=== PATIENT | female | born 2000 | race Caucasian/White ===

== ENCOUNTER → 2022-04-12 | Outpatient (RCR) | payer BC | PROVIDERS: ATTEND Orthopaedic Surgery | DX: Z98.890 Other specified postprocedural states (principal) ==

== ENCOUNTER 2022-05-09 11:06 | Outpatient (RCR) | payer BC | END 2022-05-13 | disposition home or self-care (01) | PROVIDERS: ATTEND Orthopaedic Surgery | DX: Z98.890 Other specified postprocedural states (principal) ==

== ENCOUNTER 2022-05-19 10:07 | Outpatient (RCR) | payer BC | END 2022-06-12 | disposition home or self-care (01) | PROVIDERS: ATTEND Orthopaedic Surgery | DX: Z98.890 Other specified postprocedural states (principal) ==

== ENCOUNTER 2023-01-18 21:43 | Emergency (ER) | payer BC ==
[~2023-01-18] VITALS: Ht 175.3 cm; Wt 90.7 kg
--- NOTE | 2023-01-18 22:00 | ED EENT ---
History of Present Illness General Stated Complaint: JAW PAIN Source: patient Exam Limitations: no limitations (RICHARD GAVIRIA) History of Present Illness Date Seen by Provider: Jan 18, 2023 Time Seen by Provider: 21:57 Initial Comments Patient is a 23-year-old female presents ED with right jaw pain. Patient states she was playing basketball around 5:30 PM. She states somebody elbowed her right jaw while playing basketball. She denies loss of consciousness. She had immediate pain. She states the pain has intensified dull achy pain with right lower dental discomfort. She states now she is having difficulty opening closing her mouth. She did take some ibuprofen right before arrival. She denies of any headache, visual changes, neck pain, vomiting, headache, dizziness, neck pain, diarrhea. She denies of any lucency over the teeth or bleeding from the mouth. Pain does radiate into the right ear. She reports increased swelling. (RICHARD GAVIRIA) Allergies and Home Medications Patient Home Medication List Home Medication List Reviewed: Yes (RICHARD GAVIRIA) Review of Systems Review of Systems Constitutional: No chills, No diaphoresis, No fever, No malaise, No weakness Eyes: Denies Blurred Vision, Denies Drainage Ears: Denies Dizziness, Denies Pain Nose: denies clots, denies congestion, denies pain Mouth: denies loose teeth, denies swelling Throat: denies pain, denies swelling, denies discharge Respiratory: No cough Cardiovascular: No edema Gastrointestinal: No abdominal pain, No nausea, No vomiting Musculoskeletal: joint pain, muscle pain, muscle stiffness Skin: No change in color (RICHARD GAVIRIA) All Other Systems Reviewed Negative Unless Noted: Yes (RICHARD GAVIRIA) Physical Exam Vital Signs Vital Signs - First Documented 01/18/23 21:49 Temp 36.5 Pulse 96 Resp 18 B/P (MAP) 130/76 (94) Pulse Ox 98 (MEE MORAN DO) Height, Weight, BMI Height: '" Weight: lbs. oz. kg; BMI Method: General Appearance: WD/WN, no apparent distress Eyes: bilateral eye normal inspection, bilateral eye PERRL, bilateral eye EOMI Ears: bilateral ear auricle normal, bilateral ear canal normal, bilateral ear TM normal Nose: normal inspection Mouth/Throat: other (Right mandible tenderness. Right TMJ tenderness. No crepitus or step-off. Limited range of motion. No dental tenderness. Right TM clear. No mastoid tenderness.) Neck: non-tender, full range of motion, supple Cardiovascular: regular rate, rhythm, no edema, no gallop, no JVD Respiratory: chest non-tender, lungs clear, normal breath sounds, no respiratory distress, no accessory muscle use Gastrointestinal: normal bowel sounds, non tender, soft, no pulsatile mass Neurologic/Psychiatric: health director II-XII nml as tested, no motor/sensory deficits, alert, normal mood/affect, oriented x 3 Skin: normal color, warm/dry (RICHARD GAVIRIA) Progress/Results/Core Measures Results/Orders Vital Signs/I&O 01/18/23 21:49 Temp 36.5 Pulse 96 Resp 18 B/P (MAP) 130/76 (94) Pulse Ox 98 (MEE MORAN DO) Departure Communication (PCP) Patient presents ED with right lower and upper jaw pain. She took a elbow to the right sided jaw while playing basketball. She is having difficulty opening closing. Denies of any specific dental tenderness. Small contusion. No obvious crepitus or step-off. CT scan of the face was ordered to rule out acute fracture. She took ibuprofen before arrival. She refused anything for pain at this time. She not concern for . She denies headache dizziness loss of conscious neck pain. CT scan maxillofacial ordered currently pending. Patient was discussed with Dr. MORAN who took over care [address] scan. If negative outpatient follow-up conservative treatment with anti-inflammatories and ice. If positive ENT follow-up. (RICHARD GAVIRIA) Impression Primary Impression: Jaw pain Additional Impression: Contusion of face Disposition: HOME, SELF-CARE Condition: Stable Departure-Patient Inst. Decision time for Depature: 23:20 (MEE MORAN DO) Referrals: SUSHIL GAMBOA DO (PCP) Primary Care Physician Patient Instructions: Contusion (DC) Add. Discharge Instructions: ICE TO AREA AT 20 MINUTE INTERVALS SOFT FOODS, AVOID ANYTHING THAT REQUIRES CHEWING FOR THE NEXT FEW DAYS TYLENOL 1 GRAM PLUS MOTRIN 800 MG 4 TIMES A DAY FOR PAIN FOLLOW UP WITH [facility] IN 1 WEEK IF NO BETTER RICHARD GAVIRIA Jan 18, 2023 22:00 MEE MORAN DO Jan 18, 2023 23:22
[2023-01-18 23:27] VITALS: BP 121/69
--- NOTE | 2023-01-19 07:56 | Diagnostic Imaging Report ---
PROCEDURE: CT maxillofacial without contrast. TECHNIQUE: Multiple contiguous axial images were obtained through the facial bones without the use of intravenous contrast. Auto Exposure Controls were utilized during the CT exam to meet ALARA standards for radiation dose reduction. INDICATION: Right-sided jaw pain. COMPARISON: None available. FINDINGS: No mandibular fracture. There are no erosions associated with the teeth and no features of periodontal disease. No fracture or erosions within the midface. Paranasal sinuses are clear. The mastoid air cells are also clear. Orbits are normal in appearance. Visualized portions of airway are normal. No abnormal thickening of epiglottis. No enlargement of the lingual tonsils. No peritonsillar abscess. IMPRESSION: 1. No mandibular fracture. 2. No dental caries or periodontal disease. 3. Findings are in agreement with the preliminary report. Dictated by: Dictated on workstation # [id number]
== END 2023-01-18 23:29 | disposition home or self-care (01) ==
LOC: EDUNIT# 21:43 → ER 21:45
DX: S00.83XA Contusion of other part of head, initial encounter (principal); W50.0XXA Accidental hit or strike by another person, initial encounter; Y93.67 Activity, basketball; Y92.310 Basketball court as the place of occurrence of the external cause
CPT/HCPCS: 70486